=== PATIENT | female | born 1955 | race Caucasian/White ===

== ENCOUNTER 2020-09-17 08:11 | Outpatient (REF) | payer OTHER, SELFPAY ==
--- NOTE | 2020-09-17 | US_ITS ---
EXAMINATION: US THYROID CLINICAL INFORMATION: Thyroid nodule. COMPARISON: Ultrasound soft tissue head/neck thyroid dated 01/18/2019. TECHNIQUE: Linear transducer leon-scale and color Doppler examination with attention to the region of the thyroid. FINDINGS: SIZE: Measurements of the thyroid lobes and nodules are given in sagittal, anteroposterior and transverse dimensions respectively. Right Thyroid Lobe: 5.1 x 2.4 x 1.7 cm, volume 10.9 mL. Previously 5.5 x 2.2 x 1.8 cm, volume 11.1 mL. Parenchyma: The gland echotexture is homogeneous. Thyroid vascularity is normal. Left Thyroid Lobe: 6.0 x 1.7 x 2.0 cm, volume 10.7 mL. Previously 5.5 x 1.8 x 1.7 cm, volume 9.2 mL. Parenchyma: The gland echotexture is homogeneous. Thyroid vascularity is normal. Isthmus: 0.6 cm in maximum AP dimension. Previously 0.6 cm. RIGHT THYROID LOBE: There are 5 nodules seen. The 4 largest are listed. 1. Location: Superior. Size: 0.9 x 0.5 x 0.9 cm. Previous: This nodule is new. Nodule characteristics: Hypoechoic, smooth margin, no calcification and no intranodular flow.. 2. Location: Superior. Size: 0.5 x 0.4 x 0.6 cm. Previous: 0.4 x 0.3 x 0.4 cm. Nodule characteristics: Hypoechoic, smooth margin, no calcification and positive intranodular flow.. 3. Location: Inferior. Size: 0.5 x 0.5 x 0.4 cm. Previous: This nodule is new. Nodule characteristics: Hypoechoic, smooth margin, peripheral calcification and no intranodular flow.. 4. Location: Inferior. Size: 1.8 x 1.8 x 1.2 cm. Previous: This nodule is new. Nodule characteristics: Isoechoic to hyperechoic, smooth margin, no calcification and minimal intranodular flow.. ISTHMUS: No nodules. LEFT THYROID LOBE: There are 4 nodules seen. 1. Location: Superior. Size: 0.7 x 0.4 x 0.5 cm. Previous: 0.7 x 0.5 x 0.5 cm. Nodule characteristics: Hypoechoic, smooth margin, no calcification and no acute nodular flow. 2. Location: Middle/superior. Size: 0.4 x 0.3 x 0.4 cm. Previous: This nodule is new. Nodule characteristics: Hypoechoic and isoechoic, margin, no pelvic patient and no intranodular flow. 3. Location: Inferior. Size: 0.7 x 0.6 x 0.7 cm. Previous: 0.8 x 0.7 x 0.8 cm. Nodule characteristics: Clarkson hypoechoic, smooth margin, peripheral calcification and no intranodular flow. 4. Location: Inferior/medial. Size: 1.1 x 0.9 x 0.9 cm. Previous: 0.9 x 0.7 x 0.8 cm. Nodule characteristics: Isoechoic, smooth margin, no calcification and peripheral flow.. NODES: No lymphadenopathy is seen in the tissue surrounding the thyroid gland. IMPRESSION: Slightly enlarged thyroid gland. There are newly appreciated bilateral thyroid nodules. The largest measures 1.8 x 1.8 x 1.2 cm in theinferior right lobe. Fine-needle aspiration of this nodule and continued ultrasound follow-up recommended.
== END 2020-09-17 08:12 | disposition home or self-care (01) ==
LOC: HO.US 08:11
DX: E04.1 Nontoxic single thyroid nodule (principal)
CPT/HCPCS: 76536

== ENCOUNTER → 2020-10-22 12:23 | Outpatient (BNVA) | payer OTHER, SELFPAY | PROVIDERS: Visit Provider Internal Medicine | DX: Z76.89 Persons encountering health services in other specified circumstances (principal) ==

== ENCOUNTER 2020-12-20 07:56 | Outpatient (REF) | payer OTHER, SELFPAY ==
--- NOTE | 2020-12-20 08:36 | PM.OP ---
Brief Operative Note Date of Service: 12/20/20 Surgeon: Gabriela Conner, DO The Patient presented today for an FNA biopsy of the thyroid. Thyroid nodules were remeasured with the RLP nodule now measuring 1.3 cm in maximal dimension, previously 1.8 cm. This nodule was isoechoic with regular margins and normal vascularity. No FNA biopsy recommended until this nodule measures 1.5 cm. Her LLP nodule was measured at 1.0 cm, also isoechoic, again with FNA biopsy not recommended until 1.5 cm. We discussed this today and she opted to not complete FNA biopsy today and instead proceed with yearly US surveillance of these nodules to monitor for any concerning growth or change. If these nodules grow or change significantly FNA biopsy will be warranted. She verbalized understanding and is in agreement with this plan of care. Estimated blood loss (mL): 0
[2020-12-20 09:46] LABS: Free T4 (Free Thyroxine) 1.19 ng/dL (0.71-1.85); Vitamin D 25-OH Total 33.1 ng/mL (>30)
== END 2020-12-20 07:57 | disposition home or self-care (01) ==
LOC: HO.US 07:56
PROVIDERS: Visit Provider Internal Medicine
DX: E04.2 Nontoxic multinodular goiter (principal); E55.9 Vitamin D deficiency, unspecified
CPT/HCPCS: 36415; 76536; 82306; 84439; 84443

== ENCOUNTER → 2021-01-03 13:20 | Outpatient (BNVA) | payer OTHER, SELFPAY | PROVIDERS: Visit Provider Internal Medicine ==

== ENCOUNTER 2021-04-24 14:46 | Outpatient (REF) | payer OTHER, SELFPAY ==
--- NOTE | ~2021-04-24 | MM_ITS ---
EXAMINATION: MM SCREENING DIGITAL BREAST TOMOSYNTHESIS, BILATERAL CLINICAL INFORMATION: Screening. Asymptomatic. The lifetime risk of breast cancer based on the Tyrer-Cuzick Model is 4%. COMPARISON: Mammography: 05/03/2018, 04/13/2018, outside mammography 05/15/2014 ([place]). TECHNIQUE: Digital breast tomosynthesis is performed in both the craniocaudal and mediolateral oblique views along with computer-aided detection (CAD). Synthesized 2D images are generated from the tomosynthesis. FINDINGS: There are scattered areas of fibroglandular density (ACR BI-RADS breast composition Category b). There is no interval mass or architectural abnormality or developing density. There are some grouped coarse calcifications again noted mid 11:00 right breast likely fibroadenomatous change. The axilla and skin contours are unremarkable. No significant changes from prior exams. MM/MM tomosynthesis screening BI IMPRESSION: No mammographic evidence of malignancy. ASSESSMENT: BI-RADS 2: Benign RECOMMENDATION: Routine annual mammography screening. This patient's information was entered into a reminder system with a target due date for their next mammogram.
== END 2021-04-24 14:47 | disposition home or self-care (01) ==
LOC: HO.MAMMO 14:46
PROVIDERS: PCP Internal Medicine Geriatric Medicine; Visit Provider Internal Medicine Geriatric Medicine
DX: Z12.31 Encounter for screening mammogram for malignant neoplasm of breast (principal)
CPT/HCPCS: 77063; 77067

== ENCOUNTER 2021-10-08 08:34 | Outpatient (REF) | payer OTHER, SELFPAY ==
--- NOTE | ~2021-10-08 | XR_ITS ---
EXAMINATION: BILATERAL SHOULDER X-RAY CLINICAL INFORMATION: Pain COMPARISON: None TECHNIQUE: 4 views of each shoulder FINDINGS: Left: Bone alignment is normal. No fracture or dislocation is seen. 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 There are degenerative changes at the greater tuberosity. Soft tissues are unremarkable. Right: Bone alignment is normal. No fracture or dislocation is seen. There are degenerative changes of the glenohumeral and acromioclavicular joints with joint space narrowing and osteophyte formation. There are degenerative changes of the greater tuberosity. There is a small soft tissue calcification adjacent to the greater tuberosity. XR/XR shoulder RT min 2V IMPRESSION: Degenerative changes.
--- NOTE | ~2021-10-08 | XR_ITS ---
EXAMINATION: BILATERAL SHOULDER X-RAY CLINICAL INFORMATION: Pain COMPARISON: None TECHNIQUE: 4 views of each shoulder FINDINGS: Left: Bone alignment is normal. No fracture or dislocation is seen. 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 There are degenerative changes at the greater tuberosity. Soft tissues are unremarkable. Right: Bone alignment is normal. No fracture or dislocation is seen. There are degenerative changes of the glenohumeral and acromioclavicular joints with joint space narrowing and osteophyte formation. There are degenerative changes of the greater tuberosity. There is a small soft tissue calcification adjacent to the greater tuberosity. XR/XR shoulder LT min 2V IMPRESSION: Degenerative changes.
== END 2021-10-08 08:35 | disposition home or self-care (01) ==
LOC: HO.XRAY 08:34
PROVIDERS: Visit Provider Internal Medicine Geriatric Medicine
DX: M25.512 Pain in left shoulder (principal); M25.511 Pain in right shoulder
CPT/HCPCS: 73030

== ENCOUNTER 2022-01-28 14:28 | Outpatient (REF) | payer OTHER, SELFPAY ==
--- NOTE | ~2022-01-28 | MM_ITS ---
EXAMINATION: BONE DENSITOMETRY CLINICAL INDICATION: Osteoporosis. COMPARISON: None (current study represents initial baseline exam). TECHNIQUE: Using a BOND DXA System (software version: 13.1) manufactured by [employer], dual-energy x-ray absorptiometry was performed of the lumbar spine and left hip. The images are of good technical quality. Summary results are attached. FINDINGS: AP SPINE L1-L4: BMD 1.014 g/cm2, Z-score 0.0, T-score -1.4, osteopenia. LEFT FEMUR, NECK: BMD 0.655 g/cm2, Z-score -1.3, T-score -2.8, osteoporosis. LEFT FEMUR, TOTAL: BMD 0.605 g/cm2, Z-score -2.0, T-score -3.2, osteoporosis. IDENTIFIED RISK FACTORS: Early menopause, secondary osteoporosis, tobacco use (current smoker), hysterectomy. HISTORY OF FRACTURE: None listed. MEDICATIONS: Vitamin D. MM/XR DEXA axial skeleton IMPRESSION: 1. DIAGNOSIS: Osteoporosis based on the lowest T-score value of -3.2 in the total femur applying World Health Organization criteria. 2. 10-YEAR FRACTURE RISK PREDICTION, FRAX: According to the guidelines, FRAX calculation should only be performed on patients in the osteopenia bone density category. Therefore, FRAX was not performed on this patient. 3. Treatment Recommendations: NOF guidelines recommend consideration for treatment in postmenopausal women and men age 50 and older presenting with the following: -A hip or vertebral (clinical or morphometric) fracture. -T-score less than or equal to -2.5 at the femoral neck or spine after appropriate evaluation to exclude secondary causes. -Low bone mass at the hip or spine and a 10-year fracture probability by FRAX of greater than or equal to 3% for hip fracture or greater than or equal to 20% for major osteoporotic fracture based on the [place] adapted WHO algorithm. 4. Other Recommendations: All treatment decisions require clinical judgment and consideration of individual patient factors, including patient preferences, comorbidities, previous drug use, risk factors not captured in the FRAX model (e.g. frailty, falls, vitamin D deficiency, increased bone turnover, interval significant decline in bone density) and possible under or overestimation of fracture risk by FRAX. Additional medical evaluation for secondary cause of low bone mineral density may be appropriate. FUTURE SCAN RECOMMENDATION: People with diagnosed cases of osteoporosis or at high risk for fracture should have regular bone mineral density tests. For patients eligible for Medicare, routine testing is allowed once every 2 years. The testing frequency can be increased to one year for patients who have rapidly progressing disease, those who are receiving or discontinuing medical therapy to restore bone mass, or have additional risk factors.
== END 2022-01-28 14:29 | disposition home or self-care (01) ==
LOC: HO.MAMMO 14:28
PROVIDERS: PCP Internal Medicine Geriatric Medicine; Visit Provider Internal Medicine Geriatric Medicine
DX: Z13.820 Encounter for screening for osteoporosis (principal); M19.011 Primary osteoarthritis, right shoulder; M19.012 Primary osteoarthritis, left shoulder; M81.0 Age-related osteoporosis without current pathological fracture; Z78.0 Asymptomatic menopausal state; Z79.899 Other long term (current) drug therapy
CPT/HCPCS: 77080

== ENCOUNTER 2022-02-20 15:01 | Outpatient (REF) | payer OTHER, SELFPAY ==
--- NOTE | ~2022-02-20 | US_ITS ---
EXAMINATION: US THYROID CLINICAL INFORMATION: Nontoxic multinodular goiter. COMPARISON: Thyroid ultrasound 09/17/2020 and 01/18/2019 TECHNIQUE: Linear transducer grayscale and color Doppler examination with attention to the region of the thyroid. FINDINGS: SIZE: Measurements of the thyroid lobes and nodules are given in sagittal, anteroposterior and transverse dimensions respectively. Right Thyroid Lobe: 4.9 x 2.2 x 2.1 cm, volume 11.5 mL. Previously 5.1 x 2.4 x 1.7 cm, volume 10.9 mL. Parenchyma: The gland echotexture is homogeneous. Thyroid vascularity is normal. Left Thyroid Lobe: 5.0 x 1.8 x 1.8 cm, volume 8.4 mL. Previously 6.0 x 1.7 x 2.0 cm, volume 10.7 mL. Parenchyma: The gland echotexture is homogeneous. Thyroid vascularity is normal. Isthmus: 0.5 cm in maximum AP dimension. Previously 0.6 cm. Estimated total number of nodules greater than or equal to 1 cm: 2. Micro Photographer nodules are described as follows: 1. Location: Right mid. Size: 0.67 x 0.43 x 0.6 cm, volume 0.1 mL. Previously: 0.55 x 0.42 x 0.61 cm, volume 0.1 mL. Nodule characteristics: Composition: Mixed cystic and solid (1). Echogenicity: Hypoechoic (2). Shape: Not taller than wide (0). Margins: Smooth (0). Echogenic Foci: None (0). ACR TI-RADS total points: 3 ACR TI-RADS category: 3 Significant change in size (>/= 20% in 2 dimensions and minimal increase of 2 mm or 50% or greater increase in volume): Change in features: None Change in ACR TI-RADS risk category: Not applicable 2. Location: Right mid. Size: 0.7 x 0.47 x 0.58 cm, volume 0.1 mL. Previously: 0.86 x 0.52 x 0.93 cm, volume 0.2 mL. Nodule characteristics: Composition: Mixed cystic and solid (1). Echogenicity: Hypoechoic (2). Shape: Not taller than wide (0). Margins: Smooth (0). Echogenic Foci: None (0). ACR TI-RADS total points: 3 ACR TI-RADS category: 3 Significant change in size (>/= 20% in 2 dimensions and minimal increase of 2 mm or 50% or greater increase in volume): None Change in features: None Change in ACR TI-RADS risk category: Not applicable 3. Location: Right inferior. Size: 1.3 x 1.0 x 1.2 cm, volume 0.87 mL. Previously: 1.8 x 1.8 x 1.2 cm, volume 2.0 mL. Nodule characteristics: Composition: Solid (2). Echogenicity: Isoechoic (1). Shape: Not taller than wide (0). Margins: Smooth (0). Echogenic Foci: None (0). ACR TI-RADS total points: 3 ACR TI-RADS category: 3 Significant change in size (>/= 20% in 2 dimensions and minimal increase of 2 mm or 50% or greater increase in volume): None Change in features: None Change in ACR TI-RADS risk category: Not applicable 4. Location: Left inferior. Size: 0.74 x 0.59 x 0.73 cm, volume 0.2 mL. Previously: 0.7 x 0.64 x 0.75 cm, volume 0.2 mL. Nodule characteristics: Composition: Mixed cystic and solid (1). Echogenicity: Hypoechoic (2). Shape: Not taller than wide (0). Margins: Smooth (0). Echogenic Foci: Macrocalcifications (1). ACR TI-RADS total points: 4 ACR TI-RADS category: 4 Significant change in size (>/= 20% in 2 dimensions and minimal increase of 2 mm or 50% or greater increase in volume): None Change in features: None Change in ACR TI-RADS risk category: Not applicable 5. Location: Left inferior. Size: 0.85 x 1.1 x 0.92 cm, volume 0.4 mL. Previously: 1.1 x 0.9 x 0.92 cm, volume 0.5 mL. Nodule characteristics: Composition: Solid (2). Echogenicity: Isoechoic (1). Shape: Taller than wide (3). Margins: Smooth (0). Echogenic Foci: None (0). ACR TI-RADS total points: 6 ACR TI-RADS category: 4 Significant change in size (>/= 20% in 2 dimensions and minimal increase of 2 mm or 50% or greater increase in volume): None Change in features: None Change in ACR TI-RADS risk category: Not applicable NODES: No lymphadenopathy is seen in the tissue surrounding the thyroid gland. US/US thyroid IMPRESSION: Multiple nonsuspicious bilateral nodules. The most complex nodule, left lower pole, is subcentimeter at this time. Recommend continued follow-up. ACR TI-RADS RECOMMENDATION REFERENCE: Ultrasound-guided fine-needle aspiration, followup ultrasound, no further follow up. * TR1 (0 point) and TR 2 (2 points): No FNA or follow up * TR3 (3 points): FNA if more than or equal to 2.5 cm in maximum dimension, followup ultrasound in 1, 3 and 5 years if 1.5 to 2.4 cm in maximum dimension. * TR4 (4-6 points): FNA if more than or equal to 1.5 cm in maximum dimension, followup ultrasound in 1, 2, 3 and 5 years if 1 to 1.4 cm in maximum dimension. * TR5 (more than or equal to 7 points): FNA if more than or equal to 1 cm in maximum dimension, followup ultrasound every year for 5 years if 0.5 to 0.9 cm in maximum dimension. * TR3, TR4 or TR5 nodules that are below the size threshold for follow up receive no follow up.
[2022-02-20 16:11] LABS: Free T4 (Free Thyroxine) 1.15 ng/dL (0.71-1.85); Thyroid Stimulating Hormone 0.48 uIU/mL (0.32-4.0); Vitamin D 25-OH Total 34.2 ng/mL (>30)
== END 2022-02-20 15:02 | disposition home or self-care (01) ==
LOC: HO.US 15:01
PROVIDERS: Visit Provider Internal Medicine
DX: E04.2 Nontoxic multinodular goiter (principal); E55.9 Vitamin D deficiency, unspecified
CPT/HCPCS: 36415; 76536; 82306; 84439; 84443

== ENCOUNTER 2023-01-01 12:05 | Outpatient (REF) | payer OTHER, SELFPAY ==
--- NOTE | ~2023-01-01 | US_ITS ---
EXAMINATION: US VENOUS ULTRASOUND WITH DOPPLER LOWER EXTREMITY, RIGHT CLINICAL INFORMATION: Pain swelling COMPARISON: None TECHNIQUE: Ultrasound of the deep veins is performed from the hip to the calf with compression sonography and color and pulse Doppler assessment. Spectral analysis with color-flow imaging is performed. FINDINGS: There is normal venous compression and respiratory variation and augmented flow. The visualized common femoral vein, superficial femoral vein, profunda femoral vein, popliteal vein, and the trifurcation region shows no evidence of deep venous thrombosis. There is no significant popliteal fossa cyst. If the patient's symptoms persist, followup ultrasound in 5 days 7 days might be of value to exclude proximal propagation from a non-visualized calf vein. US/US venous duplex LE RT IMPRESSION: No DVT demonstrated in the right lower extremity.
== END 2023-01-01 12:06 | disposition home or self-care (01) ==
LOC: HO.US 12:05
PROVIDERS: PCP Internal Medicine Geriatric Medicine; Visit Provider Internal Medicine Geriatric Medicine
DX: M79.661 Pain in right lower leg (principal); M79.651 Pain in right thigh
CPT/HCPCS: 93971

== ENCOUNTER 2023-01-13 14:12 | Outpatient (REF) | payer OTHER, SELFPAY ==
--- NOTE | ~2023-01-13 | MM_ITS ---
EXAMINATION: MM SCREENING DIGITAL BREAST TOMOSYNTHESIS, BILATERAL CLINICAL INFORMATION: Screening. Asymptomatic. The lifetime risk of breast cancer based on the Tyrer-Cuzick Model is 4%. COMPARISON: Mammography: 04/24/2021, 05/03/2018, 04/13/2018; outside mammography 05/15/2014 ([place]) TECHNIQUE: Digital breast tomosynthesis is performed in both the craniocaudal and mediolateral oblique views along with computer-aided detection (CAD). Synthesized 2D images are generated from the tomosynthesis. FINDINGS: There are scattered areas of fibroglandular density (ACR BI-RADS breast composition Category b). Parenchymal pattern is similar to prior studies and there is no significant mass or developing density or architectural abnormality. The axilla and skin contours are unremarkable. No abnormal calcifications on left. There are increased tightly grouped calcifications 11:30 mid right breast possibly fibroadenomatous change. Patient will be recalled for additional magnification views. MM/MM tomosynthesis screening BI IMPRESSION: Right: -Increased tightly grouped calcifications mid 11:30 possibly fibroadenomatous change. Left: -No mammographic evidence of malignancy. ASSESSMENT: BI-RADS 0: Incomplete - Need Additional Imaging Evaluation RECOMMENDATION: 1. Additional views of the right breast (magnification CC, magnification ML). 2. Radiology department staff will contact the patient for additional imaging. This patient's information was entered into a reminder system with a target due date for their next mammogram.
== END 2023-01-13 14:13 | disposition home or self-care (01) ==
LOC: HO.MAMMO 14:12
PROVIDERS: Visit Provider Internal Medicine Geriatric Medicine
DX: Z12.31 Encounter for screening mammogram for malignant neoplasm of breast (principal)
CPT/HCPCS: 77063; 77067

== ENCOUNTER 2023-03-23 14:24 | Outpatient (REF) | payer OTHER, SELFPAY ==
--- NOTE | ~2023-03-23 | MM_ITS ---
EXAMINATION: MM DIAGNOSTIC DIGITAL MAMMOGRAPHY, RIGHT CLINICAL INFORMATION: Recall from screening for increased tightly grouped calcifications mid 11:30 right breast, possibly fibroadenomatous changes. COMPARISON: Prior mammography exams, most recent 01/13/2023. TECHNIQUE: Digital mammography is performed in the following views: Magnification right CC, magnification right ML. FINDINGS: There are scattered areas of fibroglandular density (ACR BI-RADS breast composition Category b). The additional views demonstrate tightly grouped calcifications increased in number from prior diagnostic mammography 05/03/2018. They are predominantly coarse and appear circumferentially arranged on the ML view. There are also some smaller calcifications in the group. Results and management options are discussed with the patient at time of visit. Patient prefers short interval follow-up imaging in 6 months rather than stereotactic sampling at this time. MM/MM added views RT IMPRESSION: Tightly grouped calcifications mid 11:30 right breast. ASSESSMENT: BI-RADS 3: Probably Benign RECOMMENDATION: Diagnostic right mammography in 6 months. This patient's information was entered into a reminder system with a target due date for their next mammogram.
== END 2023-03-23 14:25 | disposition home or self-care (01) ==
LOC: HO.MAMMO 14:24
PROVIDERS: PCP Internal Medicine Geriatric Medicine; Visit Provider Internal Medicine Geriatric Medicine
DX: R92.1 Mammographic calcification found on diagnostic imaging of breast (principal)
CPT/HCPCS: 77065

== ENCOUNTER 2023-09-29 14:18 | Outpatient (REF) | payer OTHER, SELFPAY ==
--- NOTE | ~2023-09-29 | MM_ITS ---
EXAMINATION: MM DIAGNOSTIC DIGITAL BREAST TOMOSYNTHESIS, RIGHT CLINICAL INFORMATION: 6 month Follow-up right breast probably benign calcifications upper slightly outer right breast, middle one third. COMPARISON: Mammography: 01/13/2023, 04/24/2021, and dating back to 2018. TECHNIQUE: Digital breast tomosynthesis is performed in both the craniocaudal and mediolateral oblique views along with computer-aided detection (CAD). Synthesized 2D images are generated from the tomosynthesis. In addition, 2-D spot magnification right CC and ML views were obtained. FINDINGS: There are scattered areas of fibroglandular density (ACR BI-RADS breast composition Category b). A small 0.5 cm group of probably benign calcifications in the central slightly upper outer right breast is completely stable without aggressive changes. The calcifications are rounded, with no significant pleomorphism, linear forms, or branching forms. The are unchanged from the prior mammogram 01/13/2023. They remain probably benign. Otherwise, there are no suspicious masses, or areas of architectural distortion in the right breast. The parenchymal pattern is stable from prior exams. There are no skin or axillary changes. MM/MM tomosynthesis diagnostic RT IMPRESSION: There are no significant changes from prior study. There are no findings suspicious for malignancy in the right breast. Stable probably benign calcifications in the central slightly upper outer right breast, for which six-month interval follow-up right breast mammography recommended to include standard magnification views, when the patient is due for bilateral screening. ASSESSMENT: BI-RADS BI-RADS 3 - Probably benign finding(s) - 6 month follow-up suggested RECOMMENDATION: 6 Month F/U Results were provided to the patient at time of visit by the technologist. This patient's information was entered into a reminder system with a target due date for their next mammogram.
== END 2023-09-29 14:19 | disposition home or self-care (01) ==
LOC: HO.MAMMO 14:18
PROVIDERS: PCP Internal Medicine Geriatric Medicine; Visit Provider Internal Medicine Geriatric Medicine
DX: R92.1 Mammographic calcification found on diagnostic imaging of breast (principal)
CPT/HCPCS: 77061; 77065

== ENCOUNTER → 2023-09-29 15:00 | Outpatient (BNV) | payer OTHER, SELFPAY | PROVIDERS: PCP Internal Medicine Geriatric Medicine; Visit Provider Radiology Diagnostic Radiology | DX: R92.1 Mammographic calcification found on diagnostic imaging of breast (principal) | CPT/HCPCS: 77061; 77065 ==

== ENCOUNTER 2024-03-22 08:42 | Outpatient (REF) | payer OTHER, SELFPAY ==
[2024-03-22 14:24] LABS: MANUAL DIFF FLAG NO
[2024-03-22 14:38] LABS: Basophils Absolute Auto 0.1 X10*3/uL (0.0-0.2); Basophils Percent Auto 0.6 % (0-2); Eosinophils Absolute Auto 0.1 X10*3/uL (0.0-0.4); Eosinophils Percent Auto 0.7 % (0-4); Hematocrit 42.5 % (37.0-47.0); Hemoglobin 14.3 g/dl (12.0-16.0); Imm Gran Abs Auto 0.02 X10*3/uL (0.00-0.03); Imm Gran Pct Auto 0.2 % (0.0-0.4); Lymphocytes Absolute Auto 3.6 X10*3/uL (1.2-4.9); Lymphocytes Percent Auto 42.8 % (20-40); Mean Corpuscular HGB Conc 33.6 g/dl (31.0-35.0); Mean Corpuscular Hemoglobin 29.4 pg (27.0-33.0); Mean Corpuscular Volume 87.4 fL (80.0-98.0); Monocytes Absolute Auto 0.5 X10*3/uL (0.1-1.2); Neutrophils Absolute Auto 4.1 x10*3/uL (2.0-8.3); Neutrophils Percent Auto 49.7 % (45-73); Platelet Count 373 X10*3/uL (160-400); Red Blood Count 4.86 X10*6/uL (4.20-5.50); Red Cell Distribution Width 16.3 % (11.0-16.0); White Blood Count 8.3 X10*3/uL (4.8-10.8)
[2024-03-22 14:55] LABS: Alanine Aminotransferase 14 U/L (0-31); Albumin Level 3.9 g/dL (3.5-5.0); Alkaline Phosphatase 81 U/L (39-117); Anion Gap 11 (12-20); Aspartate Amino Transferase 14 U/L (5-31); Bilirubin Total 0.2 mg/dL (0.0-1.0); Blood Urea Nitrogen 12 mg/dL (9-16); Calcium 9.3 mg/dL (8.4-10.2); Carbon Dioxide 25 mmol/L (22-29); Chloride 108 mmol/L (96-108); Cholesterol 212 mg/dL (<200); Estimated Glomerular Filt Rate > 60; Glucose Random 100 mg/dL (60-115); HDL Cholesterol 55 mg/dL (>40); LDL Cholesterol Calculated 144 mg/dL (<100); Potassium 3.7 mmol/L (3.3-5.1); Sodium 140 mmol/L (135-145); Total Protein 7.9 g/dL (6.5-8.0); Triglycerides 68 mg/dL (<150)
[2024-03-22 15:01] LABS: TSH reflex Free T4 0.62 uIU/mL (0.32-4.0); Vitamin D 25-OH Total 35.8 ng/mL (>30)
[2024-03-22 15:32] LABS: Folate 8.5 ng/mL (> or = 4.0); Vitamin B12 400 pg/mL (200-900)
== END 2024-03-22 08:43 | disposition home or self-care (01) ==
LOC: HO.CHCLDS 08:42
PROVIDERS: Visit Provider Internal Medicine Geriatric Medicine
DX: I10 Essential (primary) hypertension (principal); R21 Rash and other nonspecific skin eruption; M25.511 Pain in right shoulder; M25.512 Pain in left shoulder; Z13.220 Encounter for screening for lipoid disorders; D72.829 Elevated white blood cell count, unspecified
CPT/HCPCS: 36415; 80053; 80061; 82306; 82607; 82746; 84443; 85025

== ENCOUNTER 2024-08-23 08:18 | Outpatient (REF) | payer OTHER, SELFPAY ==
[2024-08-23 14:34] LABS: MANUAL DIFF FLAG NO
[2024-08-23 14:43] LABS: Basophils Absolute Auto 0.1 X10*3/uL (0.0-0.2); Basophils Percent Auto 0.7 % (0-2); Eosinophils Percent Auto 0.4 % (0-4); Hematocrit 42.8 % (37.0-47.0); Hemoglobin 14.4 g/dl (12.0-16.0); Imm Gran Abs Auto 0.03 X10*3/uL (0.00-0.03); Imm Gran Pct Auto 0.3 % (0.0-0.4); Lymphocytes Absolute Auto 3.2 X10*3/uL (1.2-4.9); Mean Corpuscular HGB Conc 33.6 g/dl (31.0-35.0); Mean Corpuscular Hemoglobin 29.6 pg (27.0-33.0); Mean Corpuscular Volume 88.1 fL (80.0-98.0); Monocytes Absolute Auto 0.6 X10*3/uL (0.1-1.2); Monocytes Percent Auto 6.5 % (2-11); Neutrophils Percent Auto 56.1 % (45-73); Platelet Count 375 X10*3/uL (160-400); Red Blood Count 4.86 X10*6/uL (4.20-5.50); White Blood Count 8.9 X10*3/uL (4.8-10.8)
[2024-08-23 18:24] LABS: Alanine Aminotransferase 14 U/L (0-31); Alkaline Phosphatase 90 U/L (39-117); Anion Gap 10 (12-20); Aspartate Amino Transferase 16 U/L (5-31); Bilirubin Total 0.3 mg/dL (0.0-1.0); Blood Urea Nitrogen 14 mg/dL (9-16); Calcium 9.5 mg/dL (8.4-10.2); Carbon Dioxide 26 mmol/L (22-29); Chloride 107 mmol/L (96-108); Cholesterol 199 mg/dL (<200); Estimated Glomerular Filt Rate > 60; Glucose Random 93 mg/dL (60-115); HDL Cholesterol 55 mg/dL (>40); LDL Cholesterol Calculated 131 mg/dL (<100); Potassium 3.9 mmol/L (3.3-5.1); Sodium 139 mmol/L (135-145); Total Protein 8.1 g/dL (6.5-8.0); Triglycerides 68 mg/dL (<150)
[2024-08-23 18:25] LABS: TSH reflex Free T4 0.49 uIU/mL (0.32-4.0)
== END 2024-08-23 08:19 | disposition home or self-care (01) ==
LOC: HO.CHCLDS 08:18
PROVIDERS: Visit Provider Internal Medicine Geriatric Medicine
DX: Z00.00 Encounter for general adult medical examination without abnormal findings (principal); E55.9 Vitamin D deficiency, unspecified; E04.1 Nontoxic single thyroid nodule
CPT/HCPCS: 36415; 80053; 80061; 82306; 84443; 85025

== ENCOUNTER → 2024-09-05 07:58 | Outpatient (REF) | payer OTHER, SELFPAY ==
--- NOTE | 2024-09-05 08:01 | HM_ITS ---
* Total monitoring time 1 day. * Underlying rhythm is sinus with an average rate of 72/Min. * Frequent supraventricular ectopy with a burden of 9.8%. Mostly isolated beats with no significant runs. * Rare ventricular ectopy. * No significant pauses or high-grade AV blocks. * No patient markers or diary events. MTDD
== END ==
LOC: HO.CARD 07:58
PROVIDERS: PCP Internal Medicine Geriatric Medicine; Visit Provider Internal Medicine Geriatric Medicine
DX: R00.2 Palpitations (principal)
CPT/HCPCS: 93225

== ENCOUNTER → 2024-09-05 08:01 | Outpatient (BNV) | payer OTHER, SELFPAY | PROVIDERS: PCP Internal Medicine Geriatric Medicine; Visit Provider Internal Medicine | DX: I47.10 Supraventricular tachycardia, unspecified (principal) | CPT/HCPCS: 93227 ==

== ENCOUNTER 2025-06-19 13:35 | Outpatient (REF) | payer OTHER, SELFPAY ==
--- OUTSIDE RECORDS SUMMARY | 2025-06-19 14:21 | XMS_ITS | Clinical Summary ---
Author Organization [employer] Address [address] [place] [address] [address] [place] [address] Care Team Providers Care Development Planner Name Role Phone Name, Loco PHILIP Primary Care Provider Allergies Active Allergy Reactions Criticality Noted Date Comments Acetaminophen 04/13/2018 Ciprofloxacin 02/26/2021 Codeine 04/13/2018 Metronidazole 02/26/2021 Oxycodone 04/13/2018 Oxycodone-Acetaminophen Other 05/05/2023 BP goes up Sulfa Antibiotics 04/13/2018 Tramadol 04/13/2018 Medications omega-3 (FISH OIL) 300 MG capsule Take by mouth Once per day. Active cholecalciferol (Vitamin D-3) 25 MCG (1000 UT) capsule Take 1,000 Units by mouth Once per day. Active Chromium 400 MCG tablet Take by mouth. Active albuterol 108 (90 Base) MCG/ACT inhaler Inhale 2 puffs every 4 (four) hours if needed for wheezing or shortness of breath. 18 g 5 05/10/20 26 Active guaiFENesin (Mucinex) 600 MG 12 hr tablet Take 1 tablet (600 mg) by mouth if needed in the morning and at bedtime for cough or congestion. Do not crush, chew, or split. 30 tablet 5 05/10/20 26 Active benzonatate (Tessalon Perles) 100 MG capsule Take 1 capsule (100 mg) by mouth if needed in the morning, at noon, and at bedtime for cough for up to 10 days. Do not crush or chew. 30 capsule 5 05/20/20 25 HYDROcodone-aceta minophen (Lincoln) 5-325 MG tabletIndications :Low back pain associated with a spinal disorder other than radiculopathy or spinal stenosis Take 1 tablet by mouth every 6 (six) hours if needed for severe pain for up to 7 days. 28 tablet 5 05/29/20 25 Active Problems Problem Noted Date Diagnosed Date Thyroid nodule 12/16/2022 Tobacco use 12/16/2022 Osteoporosis 01/29/2022 Vitamin D deficiency 04/13/2018 Shoulder pain 01/28/2016 Encounters Date Type Department Care Team Description 06/01/[address] [address] Melvin Blake [place] july recalls 06/01/[address] [address] Melvin Blake [place] july recalls 05/22/[address] [address] Michelle Beckett, LEONIDES Low back pain associated with a spinal disorder other than radiculopathy or spinal stenosis (Primary Dx) 05/10/2025 3:00 PM EDT Office Visit [facility] [address] [place] [id number] Ellen Lopez DO Acute bronchitis, unspecified organism (Primary Dx) 05/10/[address] [address] Loco Michel MD Error (VOID this visit) 05/10/[address] [address] Loco Michel MD Nurse Triage 05/05/[address] [address] Loco Michel MD 04/17/2025 3:15 PM EDT Office Visit [address] [address] Loco Michel MD Elevated blood pressure, situational (Primary Dx); Tobacco dependence; Encounter for screening mammogram for malignant neoplasm of breast 04/17/2025 Travel 04/14/2025 Telephone [facility] [address] [place] [address] Андрей Grimes MA chartprep 04/10/2025 Travel 03/21/2025 Refill [facility] [address] [place] [address] Name, MD Loco Chronic shoulder pain, unspecified laterality (Primary Dx) from Last 3 Months Immunizations Immunization Administration Dates Next Due TD (adult), 2 Lf tetanus tox oid, preservative free, adsorbed 12/31/2021,01/28/2002 Tdap 08/03/2012 Social History Tobacco Use Types Packs/Day Years Used Date Smoking Tobacco: Every Day Cigarettes Smokeless Tobacco: Never Tobacco Cessation:Ready to Q uit: Not Asked; Counseling Given: Not Answered Alcohol Use Standard Drinks/Week Comments Yes 0 (1 standard drink = 0.6 oz pur e alcohol) occassionally Depression Answer Date Recorded Patient Health Questionnaire-9 Score 4 04/17/2025 Patient Health Questionnaire-9 Score 4 04/17/2025 Last PHQ-9: Questionnaire Data Not on file 0 04/17/2025 Housing Stability Answer Date Recorded What is your housing situation today? I have linden tim 04/17/[address] you li ve. Do you have problems with any of the following? None of the above 04/17/2025 Food Insecurity Answer Date Recorded Within the past 12 months, y ou worried that your food would run out before you got money to buy more: Never True 04/17/2025 Within the past 12 months,th e food you bought just didn't last and you didn't have enough money to get more: Never True Transportation Answer Date Recorded In the past 12 months, has l ack of transportation kept you from medical appts, meetings, work or from getting things needed for daily living? No 04/17/2025 Utilities Answer Date Recorded In the past 12 months, has t he electric, gas, oil or water company threatened to shut off services in your home? No 04/17/2025 Depression Answer Date Recorded Patient Health Questionnaire-2 Score 0 04/17/2025 Internet Access Answer Date Recorded Internet Access Q1 Yes 04/17/2025 Internet Access Q2 Not on file 04/17/2025 Comments No Sex and Gender Information Value Date Recorded Sex Assigned at Female 09/29/2022 10:29 AM EDT Legal Sex Female 10:29 AM EDT Gender Identity Female 09/29/2022 10:29 AM EDT Sexual Orientation Straight 09/29/2022 10 :29 AM EDT Last Filed Vital Signs Vital Sign Reading Time Taken Comments Blood Pressure 160/90 05/10/2025 3:06 PM EDT Pulse 75 05/10/2025 3:06 PM EDT Temperature 36.6 C (97.9 F) 04/17/2025 3:08 PM EDT Respiratory Rate 18 04/17/2025 3:08 PM EDT Oxygen Saturation 97% 05/10/2025 3:06 PM EDT Inhaled Oxygen Concentration - - Weight 72.8 kg (160 lb 6.4 oz) 08/15/2024 9:10 A M EDT Height 167.6 cm (5' 6 ) 05/10/2025 3:06 PM EDT Body Mass Index 25.89 08/15/2024 9:10 AM EDT Plan of Treatment Upcoming Encounters Date Type Department Care Team (Late st Contact Info) Description 09/05/2025 2:45 PM EDT Office Visit [facility] [address] [place] [phone] Name, MD Loco [address] [place] [address] Health Maintenance Due Date Last Done Comments CT Colonography 1955 Colonoscopy 1955 Colorectal Cancer Screening 1955 FIT DNA/Cologuard 1955 FIT 1955 FOBT 1955 Sigmoidoscopy 1955 Hepatitis C Screening 1972 Pneumococcal Vaccine: 50+ Years (1 of 2 - PCV) 1973 Zoster Vaccines (1 of 2) 2004 Mammogram 03/29/2024 09/29/2023, 09/01, 03/23/2023, Additional history exists COVID-19 Vaccine ( season) 2024 12/05/2021, 06/04/2021, 05/07/2021 Influenza Vaccine (#1) 2025 Alcohol/Substance Use Screening 04/17/2026 04/17/2025 Depression Screening 04/17/2026 04/17/2025, 04/17/20 25 SDOH Screening 04/17/2026 04/17/2025 Tobacco Screening 05/10/2026 05/10/2025 RSV Patients and Patients Aged 60 years or older (1 - 1-dose 75+ series) 2029 Lipid Panel 08/23/2029 08/23/2024, 03/01, 12/16/2022, Additional history exists DTaP/Tdap/Td Vaccines (3 - Td or Tdap) 12/31/2031 12/31/2021, 08/03/2012, 01/28/2002 HIB Vaccines Aged Out No longer eligi ble based on patient's age to complete this topic HPV Vaccines Aged Out No longer eligi ble based on patient's age to complete this topic Hepatitis A Vaccines Aged Out No long er eligible based on patient's age to complete this topic Hepatitis B Vaccines Aged Out No long er eligible based on patient's age to complete this topic IPV Vaccines Aged Out No longer eligi ble based on patient's age to complete this topic Meningococcal B Vaccine Aged Out No l onger eligible based on patient's age to complete this topic Meningococcal Vaccine Aged Out No mahesh nu eligible based on patient's age to complete this topic RSV under 20 months Aged Out No longe r eligible based on patient's age to complete this topic Rotavirus Vaccines Aged Out No longer eligible based on patient's age to complete this topic Procedures Procedure Name Priority Date/Time Associated Diagnosis Comments LIPID PANEL, STANDARD Routine 08/23/2024 8:23 AM EDT PE (physical exam), routine Vitamin D deficiency Thyroid nodule BI MAMMOGRAM DIAGNOSTIC TOMOSYNTHESIS RIGHT Routine 09/29/2023 2:45 PM EDT from Last 3 Months or Most Recently Relevant to Health Maintenance Results * (ABNORMAL) Lipid Panel, Standard (08/23/2024 8:23 AM EDT) Triglycerides 68 <150 mg/dL [facility] Comment:Desirable Triglyceri de: less than 150 mg/dLBorderline High Triglyceride 150-199 mg/dLHigh Triglyceride: 200-499 mg/dLVery High Triglyceride: greater than or equal to 5OO mg/dL Cholesterol 199 <200 mg/dL [facility] Comment:Desirable Cholestero l: less than 200 mg/dLBorderline High Cholesterol: 200-239 mg/dLHigh Cholesterol: greater than 239 mg/dL LDL Cholesterol Calculated 131(H) <100 mg/dL [facility] Comment:Desirable LDL: less than 100 mg/dLNear Optimal/Above Optimal LDL: 110- 129 mg/dLBorderline High LDL: 130-159 mg/dLHigh LDL: 160-189 mg/dLVery High LDL: greater than or equal to 190 mg/dL HDL Cholesterol 55 >40 mg/dL [facility] Comment:Desirable HDL: great er than 40 mg/dL Note: This HDL assay may give artificially low results in patients with liver disease. Blood Venous blood specimen / Unknown 08/23/2024 8:23 AM EDT 08/23/2024 2:26 PM EDT Loco Michel MD LAB BLOOD ORDERABLES Final Resul t [facility] [address] [place] [address] [phone] * BI Mammogram Diagnostic Tomosynthesis Right (09/29/2023 2:45 PM EDT) Anatomical Region Laterality Modality Breast Right Mammography 09/29/2023 2:45 PM EDT Narrative 09/29/2023 3:20 PM EDT [facility] [address] [place] [address] Mammography Report Signed Patient: Sarah Morataya MR#: [id number] : 1955 Acct:[id number] Age/Sex: 68 / F ADM Date: 09/29/23 Loc: HO.MAMMO Attending Dr: Loco Michel MD Ordering Physician: Loco Michel MD Results: 3.6MProbab ly Benign Finding - Short 6 M F/U Suggested Date of Service: 09/29/23 Follow Up: 6 Month F/U Procedure(s): MM tomosynthesis diagnostic RT Accession Number(s): [id number] cc: Name,Loco PHILIP EXAMINATION: MM DIAGNOSTIC DIGITAL BREAST TOMOSYNTHESIS, RIGHT CLINICAL INFORMATION: 6 month Follow-up right breast probably benign calcifications upper slightly outer right breast, middle one third. COMPARISON: Mammography: 01/13/2023, 04/24/2021, and dating back to 2018. TECHNIQUE: Digital breast tomosynthesis is performed in both the craniocaudal and mediolateral oblique views along with computer-aided detection (CAD). Synthesized 2D images are generated from the tomosynthesis. In addition, 2-D spot magnification right CC and ML views were obtained. FINDINGS: There are scattered areas of fibroglandular density (ACR BI-RADS breast composition Category b). A small 0.5 cm group of probably benign calcifications in the central slightly upper outer right breast is completely stable without aggressive changes. The calcifications are rounded, with no significant pleomorphism, linear forms, or branching forms. The are unchanged from the prior mammogram 01/13/2023. They remain probably benign. Otherwise, there are no suspicious masses, or areas of architectural distortion in the right breast. The parenchymal pattern is stable from prior exams. There are no skin or axillary changes. MM/MM tomosynthesis diagnostic RT IMPRESSION: There are no significant changes from prior study. There are no findings suspicious for malignancy in the right breast. Stable probably benign calcifications in the central slightly upper outer right breast, for which six-month interval follow-up right breast mammography recommended to include standard magnification views, when the patient is due for bilateral screening. ASSESSMENT: BI-RADS BI-RADS 3 - Probably benign finding(s) - 6 month follow-up suggested RECOMMENDATION: 6 Month F/U Results were provided to the patient at time of visit by the technologist. This patient's information was entered into a reminder system with a target due date for their next mammogram. Dictated By: Zack Thibodeaux MD Signed By: <Electronically signed by Zack Thibodeaux MD in OV> 09/29/23 1516 DD/ 1445 TD/TT: Blow Pit Helper: Procedure Note Donotuseinterpreter, Image - 09/29/2023 [facility] [address] [place], [place] [address] Mammography Report Signed Patient: Sarah MoratayaMR#: [id number] : 4Acct:[id number] Age/Sex: 68 / FADM Date: 09/29/23 Loc: HO.MAMMO Attending Dr: Loco Michel MD Ordering Physician: Loco Michel MDResults: 3.6MProbab ly Benign Finding - Short 6 M F/U Suggested Date of Service: 09/29/23Follow Up: 6 Month F/U Procedure(s): MM tomosynthesis diagnostic RT Accession Number(s): [id number] cc: Loco Michel MD EXAMINATION: MM DIAGNOSTIC DIGITAL BREAST TOMOSYNTHESIS, RIGHT CLINICAL INFORMATION: 6 month Follow-up right breast probably benign calcifications upper slightly outer right breast, middle one third. COMPARISON: Mammography: 01/13/2023, 04/24/2021, and dating back to 2018. TECHNIQUE: Digital breast tomosynthesis is performed in both the craniocaudal and mediolateral oblique views along with computer-aided detection (CAD). Synthesized 2D images are generated from the tomosynthesis. In addition, 2-D spot magnification right CC and ML views were obtained. FINDINGS: There are scattered areas of fibroglandular density (ACR BI-RADS breast composition Category b). A small 0.5 cm group of probably benign calcifications in the central slightly upper outer right breast is completely stable without aggressive changes. The calcifications are rounded, with no significant pleomorphism, linear forms, or branching forms. The are unchanged from the prior mammogram 01/13/2023. They remain probably benign. Otherwise, there are no suspicious masses, or areas of architectural distortion in the right breast. The parenchymal pattern is stable from prior exams. There are no skin or axillary changes. MM/MM tomosynthesis diagnostic RT IMPRESSION: There are no significant changes from prior study. There are no findings suspicious for malignancy in the right breast. Stable probably benign calcifications in the central slightly upper outer right breast, for which six-month interval follow-up right breast mammography recommended to include standard magnification views, when the patient is due for bilateral screening. ASSESSMENT: BI-RADS BI-RADS 3 - Probably benign finding(s) - 6 month follow-up suggested RECOMMENDATION: 6 Month F/U Results were provided to the patient at time of visit by the technologist. This patient's information was entered into a reminder system with a target due date for their next mammogram. Dictated By: Zack Thibodeaux MD Signed By: <Electronically signed by Zack Thibodeaux MD in OV> 09/29/23 1516 DD/ 1445 TD/TT: Blow Pit Helper: Loco Name IMG BI PROCEDURES Final Result from Last 3 Months or Most Recently Relevant to Health Maintenance Insurance OPEN ACCESS Care Teams Development Planner Relationship Specialty Start Date End Date Name, MD Loco [address] [place] [address] PCP - General Family Medicine 05/31/18
== END 2025-06-19 13:36 | disposition home or self-care (01) ==
LOC: HO.MAMMO 13:35
PROVIDERS: PCP Internal Medicine Geriatric Medicine; Visit Provider Internal Medicine Geriatric Medicine
DX: Z12.31 Encounter for screening mammogram for malignant neoplasm of breast (principal)
CPT/HCPCS: 77063; 77067

== ENCOUNTER → 2025-06-19 14:15 | Outpatient (BNV) | payer OTHER, SELFPAY | PROVIDERS: PCP Internal Medicine Geriatric Medicine; Visit Provider Internal Medicine | DX: Z12.31 Encounter for screening mammogram for malignant neoplasm of breast (principal) | CPT/HCPCS: 77063; 77067 ==

== ENCOUNTER 2025-09-04 08:18 | Outpatient (REF) | payer OTHER, SELFPAY ==
--- OUTSIDE RECORDS SUMMARY | 2025-09-04 08:38 | XMS_ITS | Clinical Summary ---
Author Organization [employer] Address [address] [place] [address] 7 [place] [address] Care Team Providers Care Digital Retoucher Name Role Phone Name, Loco PHILIP Primary Care Provider [phone] Allergies Active Allergy Reactions Criticality Noted Date [...] Chromium 400 MCG tablet Take by mouth. Acti ve albuterol 108 (90 Base) MCG/ACT inhaler Inhale [...] split. 30 tablet 5 05/10/20 26 Active Active Problems Problem Noted Date Diagnosed Date Thyroid nodule 12/16/2022 Tobacco use 12/16/2022 Osteoporosis 01/29/2022 Vitamin D deficiency 04/13/2018 Shoulder pain 01/28/2016 Encounters Date Type Department Care Team Description 08/29/2025 Patient Outreach [facility] [address] [place] [address] Name, MD Loco Pre-visit Planning (SDOH was already complete) 08/29/2025 Travel 07/10/2025 Refill [facility] [address] [place] [address] Name, MD Loco Low back pain associated with a spinal disorder other than radiculopathy or spinal stenosis (Primary Dx) from Last 3 Months Immunizations [...] your housing situation today? I have linden dumont 04/17/[address] you li [...] Description 09/05/2025 2:45 PM EDT Office Visit [facility] [address] [place] [id number] Name, MD Loco [address] [place] [address] Health Maintenance Due Date Last Done Comments CT Colonography 1954 Colonoscopy 1955 Colorectal Cancer Screening 1955 FIT DNA/Cologuard 1954 FIT 1954 FOBT 1954 Sigmoidoscopy 1954 Hepatitis C Screening 1972 Pneumococcal Vaccine: 50+ Years (1 of 2 - PCV) 1973 Zoster Vaccines (1 of 2) 2004 COVID-19 Vaccine (4 - season) 2025 12/05/2021, 06/04/2021, 05/07/2021 Influenza Vaccine (#1) 2025 Mammogram 12/20/2025 06/19/2025, 09/01, 09/29/2023, Additional history exists Alcohol/Substance Use Screening 04/17/2026 04/17/2025 Depression Screening [...] Procedure Name Priority Date/Time Associated Diagnosis Comments BI MAMMOGRAM SCREENING TOMOSYNTHESIS BILATERAL Routine 06/19/2025 1:45 PM EDT Encounter for screening mammogram for malignant neoplasm of breast LIPID PANEL, STANDARD Routine 08/23/2024 8:23 AM EDT PE (physical exam), routine Vitamin D deficiency Thyroid nodule from Last 3 Months or Most Recently Relevant to Health Maintenance Results * BI Mammogram Screening Tomosynthesis Bilateral (06/19/2025 1:45 PM EDT) Anatomical Region Laterality Modality Breast Bilateral Mammography 06/19/2025 1:45 PM EDT Narrative 06/27/2025 11:47 AM EDT [place] [facility] [address] [place], [place] [address] Mammography Report Signed with Addenda Patient: Sarah Morataya MR#: [id number] : 1955 Acct:[id number] Age/Sex: 70 / F ADM Date: 06/19/25 Loc: HO.MAMMO Attending Dr: Loco Michel MD Ordering Physician: Loco Michel MD Results: 0Incomplet e: Needs Additional Imaging Evaluation Date of Service: 06/19/25 Follow Up: Additional Imagi ng Procedure(s): MM tomosynthesis screening BI Accession Number(s): [id number] cc: Loco Michel MD ADDENDUM ADDENDUM #1 ADDENDUM: Patient was contacted for additional magnification views of right breast calcifications however patient declined and does not wish to come back for additional views. Additional views still recommended as below. ASSESSMENT: BI-RADS BI-RADS 0 - Incomplete: Needs additional Imaging. RECOMMENDATION: 1. Additional views of the right breast with magnification views. 2. Radiology department staff will contact the patient for additional imaging. Additional Imaging required OVERALL ASSESSMENT: BI-RADS 0 - Incomplete: Needs additional Imaging. RECOMMENDATION: Additional Imaging required Electronically signed by: Sharri Drew DO 07/05/2025 12:43 PM EDT Addendum Dictated By: Sharri Drew DO Addendum Signed By: <Electronically signed by Sharri Drew DO in OV> 07/05/25 1243 Addendum Cosigned By: DD/ TD/TT: 06/19/25 EXAMINATION: MM SCREENING DIGITAL BREAST TOMOSYNTHESIS, BILATERAL CLINICAL INFORMATION: Screening. Asymptomatic. COMPARISON: Mammography: Comparison is made with available priors TECHNIQUE: Digital breast mammography with tomosynthesis is performed in both the craniocaudal and mediolateral oblique views along with computer-aided detection (CAD). FINDINGS: There are scattered areas of fibroglandular density (ACR BI-RADS breast composition Category b). Right: Grouped calcifications upper slightly outer breast posterior depth recommended for follow-up on prior diagnostic imaging examination. Recommend magnification views at this time. No suspicious masses or other abnormal findings. Left: There are no significant masses, abnormal calcifications, or other abnormalities. MM/MM tomosynthesis screening BI IMPRESSION: Additional imaging is recommended ASSESSMENT: BI-RADS BI-RADS 0 - Incomplete: Needs additional Imaging. RECOMMENDATION: 1. Additional views of the right breast with magnification views. 2. Targeted ultrasound if warranted after review of the additional views. 3. Radiology department staff will contact the patient for additional imaging. Additional Imaging required This examination should not preclude the clinical evaluation of a suspicious palpable abnormality. This patient's information was entered into a reminder system with a target due date for their next mammogram. Electronically signed by: Sharri Drew DO 06/27/2025 11:44 AM EDT Dictated By: Sharri Drew DO Signed By: <Electronically signed by Sharri Drew DO in OV> 06/27/25 1144 DD/ 1345 TD/TT: 06/19/25 1400 Outboard Technician: Procedure Note Donotuseinterpreter, Image - [facility] [address] [place] [address] Mammography Report Signed with Addenda Patient: Sarah Morataya#: [id number] : 1955cct:[id number] Age/Sex: 70 / FADM Date: 06/19/25 Loc: MAMMO Attending Dr: Loco Michel MD Ordering Physician: Loco Michelesults: 0Incomplet e: Needs Additional Imaging Evaluation Date of Service: 06/19/25Follow Up: Additional Imagi ng Procedure(s): MM tomosynthesis screening BI Accession Number(s): [id number] cc: Loco Michel MD ADDENDUM ADDENDUM #1 ADDENDUM: Patient was contacted for additional magnification views of right breast calcifications however patient declined and does not wish to come back for additional views. Additional views still recommended as below. ASSESSMENT: BI-RADS BI-RADS 0 - Incomplete: Needs additional Imaging. RECOMMENDATION: 1. Additional views of the right breast with magnification views. 2. Radiology department staff will contact the patient for additional imaging. Additional Imaging required OVERALL ASSESSMENT: BI-RADS 0 - Incomplete: Needs additional Imaging. RECOMMENDATION: Additional Imaging required Electronically signed by: Sharri Drew DO 07/05/2025 12:43 PM EDT RP Addendum Dictated By: Sharri Drew DO Addendum Signed By: <Electronically signed by DO Shonda in OV> 07/05/25 1243 Addendum Cosigned By: DD/ TD/TT: 06/19/25 EXAMINATION: MM SCREENING DIGITAL BREAST TOMOSYNTHESIS, BILATERAL CLINICAL INFORMATION: Screening. Asymptomatic. COMPARISON: Mammography: Comparison is made with available priors TECHNIQUE: Digital breast mammography with tomosynthesis is performed in both the craniocaudal and mediolateral oblique views along with computer-aided detection (CAD). FINDINGS: There are scattered areas of fibroglandular density (ACR BI-RADS breast composition Category b). Right: Grouped calcifications upper slightly outer breast posterior depth recommended for follow-up on prior diagnostic imaging examination. Recommend magnification views at this time. No suspicious masses or other abnormal findings. Left: There are no significant masses, abnormal calcifications, or other abnormalities. MM/MM tomosynthesis screening BI IMPRESSION: Additional imaging is recommended ASSESSMENT: BI-RADS BI-RADS 0 - Incomplete: Needs additional Imaging. RECOMMENDATION: 1. Additional views of the right breast with magnification views. 2. Targeted ultrasound if warranted after review of the additional views. 3. Radiology department staff will contact the patient for additional imaging. Additional Imaging required This examination should not preclude the clinical evaluation of a suspicious palpable abnormality. This patient's information was entered into a reminder system with a target due date for their next mammogram. Electronically signed by: Sharri Drew DO 06/27/2025 11:44 AM EDT RP Dictated By: Sharri Drew DO Signed By: <Electronically signed by Sharri Drew DO in OV> 06/27/25 1144 DD/ 1345 TD/TT: 06/19/25 1400 Outboard Technician: us Adan Name IMG BI PROCEDURES Edited Result - Final * (ABNORMAL) Lipid Panel, Standard (08/23/2024 8:23 AM EDT) Triglycerides 68 <150 mg/dL [facility] Comment:Desirable Triglyceri de: less than 150 mg/dLBorderline High Triglyceride 150-199 mg/dLHigh Triglyceride: 200-499 mg/dLVery High Triglyceride: greater than or equal to 5OO mg/dL Cholesterol 199 <200 mg/dL [facility] Comment:Desirable Cholestero l: less than 200 mg/dLBorderline High Cholesterol: 200-239 mg/dLHigh Cholesterol: greater than 239 mg/dL LDL Cholesterol Calculated 131(H) <100 mg/dL [facility] Comment:Desirable LDL: less than 100 mg/dLNear Optimal/Above Optimal LDL: 110- 129 mg/dLBorderline High LDL: 130-159 mg/dLHigh LDL: 160-189 mg/dLVery High LDL: greater than or equal to 190 mg/dL HDL Cholesterol 55 >40 mg/dL [facility] Comment:Desirable HDL: great er than 40 mg/dL Note: This HDL assay may give artificially low results in patients with liver disease. Blood Venous blood specimen / Unknown 08/23/2024 8:23 AM EDT 08/23/2024 2:26 PM EDT us Loco Michel MD LAB BLOOD ORDERABLES Final Resul t [facility] [address] [place] [phone] from Last 3 Months or Most Recently Relevant to Health Maintenance Insurance [employer] OPEN ACCESS Care Teams Digital Retoucher Relationship Specialty Start Date End Date Name, MD Loco [address] [place] [id number] PCP - General Family Medicine 05/31/18
--- OUTSIDE RECORDS SUMMARY | 2025-09-04 08:39 | XMS_ITS | Encounter Summary ---
Author Organization [employer] Address [address] [facility] [address] [address] Care Team Providers Care Fern Gatherer Name Role Phone NameLoco MD Primary Care Provider [phone] Reason for Visit * Reason Onset Date Comments Appointment Request 12/14/2024 Encounter Details Date Type Department Care Team ([facility] st Contact Info) Description 12/14/2024 Telephone [facility] MEDIC[facility] [address] [place], [place] [phone] Name, MD Loco [address] [place] [address] Appointment Request Social History Tobacco Use Types Packs/Day Years Used Date Smoking Tobacco: Every Day Cigarettes Smokeless Tobacco: Never Alcohol Use Standard Drinks/Week Comments Yes 0 (1 standard drink = 0.6 oz pur e alcohol) occassionally Depression Answer Date Recorded Patient Health Questionnaire-9 Score 0 12/16/2022 Housing Stability Answer Date Recorded What is your housing situation today? I have lidnen dumont 09/14/[address] you li ve. Do you have problems with any of the following? None of the above 09/14/2023 Food Insecurity Answer Date Recorded Within the past 12 months, y ou worried that your food would run out before you got money to buy more: Never True 09/14/2023 Within the past 12 months,th e food you bought just didn't last and you didn't have enough money to get more: Never True Transportation Answer Date Recorded In the past 12 months, has l ack of transportation kept you from medical appts, meetings, work or from getting things needed for daily living? No 09/14/2023 Utilities Answer Date Recorded In the past 12 months, has t he electric, gas, oil or water company threatened to shut off services in your home? No 09/14/2023 Depression Answer Date Recorded Patient Health Questionnaire-2 Score 0 12/16/2022 Comments Unknown Sex and Gender Information Value Date Recorded Sex Assigned at Female 09/29/2022 10:29 AM EDT Legal Sex Female 10:29 AM EDT Gender Identity Female 09/29/2022 10:29 AM EDT Sexual Orientation Straight 09/29/2022 10 :29 AM EDT documented as of this encounter Miscellaneous Notes * Telephone Encounter - Jeanine Keane - 12/14/2024 8:52 AM EST Tc from pt requesting reschedule 11/21 appt that was canceled due no electricity. PAR tried to schedule but there's no availability. Contact pt [phone] documented in this encounter Plan of Treatment Upcoming Encounters Date Type Department Care Team (Late st Contact Info) Description 09/05/2025 2:45 PM EDT Office Visit [facility] [address] [place] [phone] Name, MD Loco [address] [place] [address] documented as of this encounter Visit Diagnoses Not on filedocumented in this encounter Additional Health Concerns Assessment Noted Time PHQ-9 Depression Total Score: 0 12/16/19 23 9:25 AM EST documented as of this encounter Care Teams Fern Gatherer Relationship Specialty Start Date End Date Name, MD Loco [address] [place] [phone] PCP - General Family Medicine 05/31/18 documented as of this encounter
[2025-09-04 14:42] LABS: MANUAL DIFF FLAG NO
[2025-09-04 14:52] LABS: Hematocrit 42.2 % (37.0-47.0); Hemoglobin 14.0 g/dl (12.0-16.0); Imm Gran Abs Auto 0.02 X10*3/uL (0.00-0.03); Imm Gran Pct Auto 0.2 % (0.0-0.4); Lymphocytes Absolute Auto 2.7 X10*3/uL (1.2-4.9); Mean Corpuscular HGB Conc 33.2 g/dl (31.0-35.0); Mean Corpuscular Hemoglobin 29.7 pg (27.0-33.0); Mean Corpuscular Volume 89.4 fL (80.0-98.0); NRBC Abs Auto 0.000 X10*3/uL (0.0-0.012); NRBC Pct Auto 0.0 /100WBC (0.0-0.2); Platelet Count 366 X10*3/uL (160-400); Red Blood Count 4.72 X10*6/uL (4.20-5.50); White Blood Count 8.0 X10*3/uL (4.8-10.8)
[2025-09-04 15:23] LABS: Alanine Aminotransferase 15 U/L (0-31); Albumin Level 3.8 g/dL (3.5-5.0); Alkaline Phosphatase 82 U/L (39-117); Anion Gap 9 (12-20); Aspartate Amino Transferase 28 U/L (5-31); Blood Urea Nitrogen 12 mg/dL (9-16); Calcium 9.0 mg/dL (8.4-10.2); Carbon Dioxide 27 mmol/L (22-29); Chloride 106 mmol/L (96-108); Cholesterol 191 mg/dL (<200); Estimated Glomerular Filt Rate > 60; HDL Cholesterol 47 mg/dL (>40); Potassium 4.3 mmol/L (3.3-5.1); Sodium 138 mmol/L (135-145); Total Protein 7.8 g/dL (6.5-8.0); Triglycerides 96 mg/dL (<150)
== END 2025-09-04 08:19 | disposition home or self-care (01) ==
LOC: HO.CHCLDS 08:18
PROVIDERS: Visit Provider Internal Medicine Geriatric Medicine
DX: Z13.6 Encounter for screening for cardiovascular disorders (principal); M25.511 Pain in right shoulder; M25.512 Pain in left shoulder; G89.29 Other chronic pain
CPT/HCPCS: 36415; 80053; 80061; 82306; 85025

== ENCOUNTER 2025-11-02 15:46 | Outpatient (REF) | payer OTHER, SELFPAY ==
--- NOTE | ~2025-11-02 | US_ITS ---
EXAMINATION: US THYROID CLINICAL INFORMATION: History of thyroid nodules. COMPARISON: February 20, 2022. TECHNIQUE: Linear transducer grayscale and color Doppler examination with attention to the region of the thyroid. FINDINGS: SIZE: Measurements of the thyroid lobes and nodules are given in sagittal, anteroposterior and transverse dimensions respectively. Right Thyroid Lobe: 5.1 x 2.0 x 2.0 cm, volume 9.1 mL. Previous: 4.9 x 2.2 x 2.1 cm, volume: 10.9 cc. Parenchyma: The gland echotexture is heterogeneous. Thyroid vascularity is normal. Left Thyroid Lobe: 5.0 x 2.0 x 2.0 cm, volume 9.2 mL. Previous: 6.0 x 1.7 x 2.0 cm, volume: 10.7 cc. Parenchyma: The gland echotexture is heterogeneous. Thyroid vascularity is normal. Isthmus: 0.5 cm in maximum AP dimension. Previous: 0.5 cm. Estimated total number of nodules greater than or equal to 1 cm: 2. Shaft Sinker nodules are described as follows: 1. Location: Lower pole, right lobe. Size: 1.5 x 0.8 x 1.0 cm, volume 0.61 mL. Previous: 1.3 x 1.0 x 1.2 cm, volume: 0.87 cc. Nodule characteristics: Composition: Solid (2). Echogenicity: Hyperechoic (1). Shape: Not taller than wide (0). Margins: Ill-defined (0). Echogenic Foci: None (0). ACR TI-RADS total points: 3 ACR TI-RADS category: 3 2. Location: Lower pole, left lobe. Size: 1.1 x 0.8 x 0.8 cm, volume 0.4 mL. Previous: 0.85 x 1.1 x 0.82 cm, volume: 0.4 cc. Nodule characteristics: Composition: Mixed cystic and solid (1). Echogenicity: Undetermined (1) Shape: Not taller than wide (0). Margins: Smooth (0). Echogenic Foci: None (0). ACR TI-RADS total points: 2 ACR TI-RADS category: 2 3. Location: Mid right lobe. Size: 0.8 x 0.6 x 0.6 cm, volume 0.14 mL. Previous: 0.55 x 0.42 x 0.61 cm, volume: 0.1 cc. Nodule characteristics: Composition: Mixed cystic and solid (1). Echogenicity: Hypoechoic (2). Shape: Not taller than wide (0). Margins: Smooth (0). Echogenic Foci: None (0). ACR TI-RADS total points: 3 ACR TI-RADS category: 3 4. Location: Mid right lobe. Size: 0.5 x 0.4 x 0.4 cm, volume 0.0 50 mL. Previously: Not seen. Nodule characteristics: Composition: Mixed cystic and solid (1). Echogenicity: Hypoechoic (2). Shape: Not taller than wide (0). Margins: Smooth (0). Echogenic Foci: None (0). ACR TI-RADS total points: 3 ACR TI-RADS category: 3 5. Location: Lower pole left lobe. Size: 0.8 x 0.4 x 0.7 cm, volume 0.12 mL. Previous: 0.7 x 0.64 x 0.75 cm, volume: 0.2 cc. Nodule characteristics: Composition: Mixed cystic and solid (1). Echogenicity: Hypoechoic (2). Shape: Not taller than wide (0). Margins: Smooth (0). Echogenic Foci: Macrocalcifications (1). ACR TI-RADS total points: 4 ACR TI-RADS category: 4 NODES: No lymphadenopathy is seen in the tissue surrounding the thyroid gland. US/US thyroid IMPRESSION: ACR TI RADS category 3 and 4 ACR TI-RADS RECOMMENDATION REFERENCE: Ultrasound-guided fine-needle aspiration, followup ultrasound, no further follow up. * TR1 (0 point) and TR2 (2 points): No FNA or follow up. * TR3 (3 points): FNA if more than or equal to 2.5 cm in maximum dimension, followup ultrasound in 1, 3 and 5 years if 1.5 to 2.4 cm in maximum dimension. * TR4 (4-6 points): FNA if more than or equal to 1.5 cm in maximum dimension, followup ultrasound in 1, 2, 3 and 5 years if 1 to 1.4 cm in maximum dimension. * TR5 (more than or equal to 7 points): FNA if more than or equal to 1 cm in maximum dimension, followup ultrasound every year for 5 years if 0.5 to 0.9 cm in maximum dimension. * TR3, TR4 or TR5 nodules that are below the size threshold for followup receive no follow up. Electronically signed by: Celio Jacobs MD 11/03/2025 06:58 AM [facility]
--- OUTSIDE RECORDS SUMMARY | 2025-11-02 21:55 | XMS_ITS | Clinical Summary ---
Author Organization [employer] Address [address] [place] [address] [address] [place] [address] Care Team Providers Care Financial Services Sales Representative Name Role Phone Looc Michel MD Primary Care Provider [phone] Allergies Active Allergy Reactions Criticality Noted Date Comments Acetaminophen 04/13/2018 Ciprofloxacin 02/26/2021 Codeine 04/13/2018 Metronidazole 02/26/2021 Oxycodone 04/13/2018 Oxycodone-Acetaminophen Other 05/05/2023 BP goes up Sulfa Antibiotics 04/13/2018 Tramadol 04/13/2018 Medications omega-3 (FISH OIL) 300 MG capsule Take by mouth Once per day. Active cholecalciferol (Vitamin D-3) 25 MCG (1000 UT) capsule Take 1,000 Units by mouth Once per day. Active HYDROcodone-edith taminophen ([place]) 5-325 MG tablet 025 Discontinued(Re order (will not trigger notification to Pharmacy)) HYDROcodone-edith taminophen ([place]) 5-325 MG tabletIndicatio ns:Chronic shoulder pain, unspecified laterality Take 1 tablet by mouth every 6 (six) hours if needed for severe pain for up to 7 days. 28 tablet 10/20/20 25 025 Active Problems Problem Noted Date Diagnosed Date Thyroid nodule 12/16/2022 Tobacco use 12/16/2022 Osteoporosis 01/29/2022 Vitamin D deficiency 04/13/2018 Shoulder pain 01/28/2016 Encounters Date Type Department Care Team Description 10/20/2025 Refill [facility] [address] [place] [phone] Loco Michel MD Chronic shoulder pain, unspecified laterality (Primary Dx) 10/20/2025 Telephone [facility] [address] [place] [phone] Loco Michel MD 09/05/2025 2:45 PM EDT Office Visit [facility] [address] [place] [address] [phone] Loco Michel MD PE (physical exam), routine (Primary Dx); Elevated blood pressure reading; Osteoporosis, unspecified osteoporosis type, unspecified pathological fracture presence; Chronic shoulder pain, unspecified laterality; Encounter for screening for malignant neoplasm of colon; Abnormal mammogram; Thyroid nodule 09/05/2025 Travel 09/04/2025 Telephone [facility] [address] [place] [phone] Loco Michel MD CHART PREP 08/29/2025 Patient Outreach [facility] [address] [place], [place] [phone] Loco Michel MD Pre-visit Planning (SDOH was already complete) 08/29/2025 Travel from Last 3 Months Immunizations Immunization Administration [...] Sign Reading Time Taken Comments Blood Pressure 162/72 09/05/2025 2:48 PM EDT Pulse 108 09/05/2025 2:48 PM EDT Temperature 36 C (96.8 F) 09/05/2025 2:48 PM EDT Respiratory Rate 18 09/05/2025 2:48 PM EDT Oxygen Saturation 97% 09/05/2025 2:48 PM EDT Inhaled Oxygen Concentration - - Weight 73.1 kg (161 lb 3.2 oz) 09/05/2025 2:48 P M EDT Height 167.6 cm (5' 6 ) 09/05/2025 2:48 PM EDT Body Mass Index 26.02 09/05/2025 2:48 PM EDT Plan of Treatment Health Maintenance Due Date Last Done Comments CT Colonography 1955 Colonoscopy 1955 Colorectal Cancer Screening 1955 FIT DNA/Cologuard 1955 FIT 1955 FOBT 1955 Sigmoidoscopy 1955 Hepatitis C Screening 1972 Pneumococcal Vaccine: 50+ Years (1 of 2 - PCV) 1973 Zoster Vaccines (1 of 2) 2004 COVID-19 Vaccine (4 - 2024-26 season) 2025 12/05/2021, 06/04/2021, 05/07/2021 Influenza Vaccine (#1) 2025 Mammogram 12/20/2025 06/19/2025, 09/01, 09/29/2023, Additional history exists Alcohol/Substance Use Screening 04/17/2026 04/17/2025 Depression Screening 04/17/2026 04/17/2025, 04/17/20 25 SDOH Screening 04/17/2026 04/17/2025 Tobacco Screening 09/05/2026 09/05/2025 RSV Patients and Patients Aged 60 years or older (1 - 1-dose 75+ series) 2029 Lipid Panel 09/04/2030 09/04/2025, 08/01, 03/22/2024, Additional history exists DTaP/Tdap/Td Vaccines (3 - [...] Procedure Name Priority Date/Time Associated Diagnosis Comments VITAMIN D,25-OH,TOTAL,IA Routine 09/04/2025 8:20 AM EDT Tobacco dependence LIPID PANEL, STANDARD Routine 09/04/2025 8:20 AM EDT Tobacco dependence COMPREHENSIVE METABOLIC PANEL Routine 09/04/2025 8:20 AM EDT Tobacco dependence CBC WITH AUTO DIFFERENTIAL Routine 09/04/2025 8:20 AM EDT Tobacco dependence BI MAMMOGRAM SCREENING TOMOSYNTHESIS BILATERAL Routine 06/19/2025 1:45 PM EDT Encounter for screening mammogram for malignant neoplasm of breast from Last 3 Months or Most Recently Relevant to Health Maintenance Results * Vitamin D, 25-Hydroxy, Total, Immunoassay (09/04/2025 8:20 AM EDT) Vitamin D 25-OH Total 46.4 >30 ng/mL [facility] Comment: Health Based Reference Values*< 20 ng/mL Wymikijie92-40 ng/mL Insufficient> 30 ng/mL Sufficient*Penelope SHEPHERD. N Engl J Med. 2007;357:266-280There is no well-established upper level of normal vitamin Dlevels. Some laboratories use 50 ng/mL as an upper limit ofnormal. However, toxicity is patient-dependent and may occurat any level. Careful correlation with the patient'spresentation is necessary and, if there is concern forvitamin D toxicity, treatment should be consideredirrespective of the serum level.Care must be taken in interpreting Vitamin D results fromdifferent laboratories and methodologies. Published datademonstrated that results from patients undergoinghemodialysis may show a negative bias when tested withvarious automated 25-OH vitamin D assays when compared toLC-MS/MS.When testing samples from patients whose predominant form ofVitamin D is Vitamin D2, such as patients receiving VitaminD2 supplementation, results that are subtherapeutic shouldbe confirmed with another method such as LC-MS/MS. Blood Venous blood specimen / Unknown 09/04/2025 8:20 AM EDT 09/04/2025 2:37 PM EDT us Loco Michel MD LAB BLOOD ORDERABLES Final Resul t [facility] [address] [place] [address] [phone] * CBC auto differential (09/04/2025 8:20 AM EDT) White Blood Count 8.0 4.8 - 10.8 X10*3/uL [facility] Red Blood Count 4.72 4.20 - 5.50 X10*6/uL [facility] Hemoglobin 14.0 12.0 - 16.0 g/dl [facility] Hematocrit 42.2 37.0 - 47.0 % [facility] Mean Corpuscular Volume 89.4 80.0 - 98.0 fL [facility] Mean Corpuscular Hemoglobin 29.7 27.0 - 33.0 pg [facility] Mean Corpuscular HGB Conc 33.2 31.0 - 35.0 g/dl [facility] Red Cell Distribution Width 15.9 11.0 - 16.0 % [facility] Platelet Count 366 160 - 400 X10*3/uL [facility] Mean Platelet Volume 9.7 9.4 - 12.3 fL [facility] Neutrophils Percent Auto 57.3 45 - 73 % [facility] Imm Gran Pct Auto 0.2 0.0 - 0.4 % [facility] Lymphocytes Percent Auto 33.4 20 - 40 % [facility] Monocytes Percent Auto 7.6 2 - 11 % [facility] Eosinophils Percent Auto 0.6 0 - 4 % [facility] Basophils Percent Auto 0.9 0 - 2 % [facility] NRBC Pct Auto 0.0 0.0 - 0.2 /100WBC [facility] Neutrophils Absolute Auto 4.6 2.0 - 8.3 x10*3/uL [facility] Imm Gran Abs Auto 0.02 0.00 - 0.03 X10*3/uL [facility] Lymphocytes Absolute Auto 2.7 1.2 - 4.9 X10*3/uL [facility] Monocytes Absolute Auto 0.6 0.1 - 1.2 X10*3/uL [facility] Eosinophils Absolute Auto 0.1 0.0 - 0.4 X10*3/uL [facility] Basophils Absolute Auto 0.1 0.0 - 0.2 X10*3/uL [facility] NRBC Abs Auto 0.000 0.0 - 0.012 X10*3/uL [facility] Blood Venous blood specimen / Unknown 09/04/2025 8:20 AM EDT 09/04/2025 2:37 PM EDT us Loco Michel MD LAB BLOOD ORDERABLES Final Resul t Performing Organization Address [facility] de Phone Number [facility] [address] [place] [phone] * (ABNORMAL) Lipid Panel, Standard (09/04/2025 8:20 AM EDT) Triglycerides 96 <150 mg/dL [facility] Comment:Desirable Triglyceri de: less than 150 mg/dLBorderline High Triglyceride 150-199 mg/dLHigh Triglyceride: 200-499 mg/dLVery High Triglyceride: greater than or equal to 5OO mg/dL Cholesterol 191 <200 mg/dL [facility] Comment:Desirable Cholestero l: less than 200 mg/dLBorderline High Cholesterol: 200-239 mg/dLHigh Cholesterol: greater than 239 mg/dL LDL Cholesterol Calculated 125(H) <100 mg/dL [facility] Comment:Desirable LDL: less than 100 mg/dLNear Optimal/Above Optimal LDL: 110- 129 mg/dLBorderline High LDL: 130-159 mg/dLHigh LDL: 160-189 mg/dLVery High LDL: greater than or equal to 190 mg/dL HDL Cholesterol 47 >40 mg/dL [facility] Comment:Desirable HDL: great er than 40 mg/dL Note: This HDL assay may give artificially low results in patients with liver disease. Blood Venous blood specimen / Unknown 09/04/2025 8:20 AM EDT 09/04/2025 2:37 PM EDT us Loco Michel MD LAB BLOOD ORDERABLES Final Resul t Performing Organization Address City/[facility] Co de Phone Number [facility] [address] [place] [phone] * (ABNORMAL) Comprehensive Metabolic Panel (09/04/2025 8:20 AM EDT) Sodium 138 135 - 145 mmol/L [facility] Potassium 4.3 3.3 - 5.1 mmol/L [facility] Comment:Slight Hemolysis.Int erpret result with caution. Chloride 106 96 - 108 mmol/L [facility] Carbon Dioxide 27 22 - 29 mmol/L [facility] Anion Gap 9(L) 12 - 20 [facility] Urea Nitrogen (BUN) 12 9 - 16 mg/dL [facility] Creatinine, Serum 0.65 0.5 - 1.4 mg/dL [facility] Estimated Glomerular Filt Rate >60 [facility] Comment:Chronic Kidney Disea se: Estimated GFR < 60 mL/min/1.66q4Xroxvl Kidney Disease: Estimated GFR < 15 mL/min/1.73m2 Glucose 91 60 - 115 mg/dL [facility] Calcium 9.0 8.4 - 10.2 mg/dL [facility] Bilirubin, Total 0.3 0.0 - 1.0 mg/dL [facility] Aspartate Amino Transferase 28 5 - 31 U/L [facility] Comment:Slight Hemolysis.Int erpret result with caution. Alanine Aminotransferase 15 0 - 31 U/L [facility] Total Protein 7.8 6.5 - 8.0 g/dL [facility] Albumin Level 3.8 3.5 - 5.0 g/dL [facility] Alkaline Phosphatase 82 39 - 117 U/L [facility] Blood Venous blood specimen / Unknown 09/04/2025 8:20 AM EDT 09/04/2025 2:37 PM EDT us Loco Michel MD LAB BLOOD ORDERABLES Final Resul t [facility] [address] [place] [address] [phone] * BI Mammogram Screening Tomosynthesis Bilateral (06/19/2025 1:45 PM EDT) Anatomical Region Laterality Modality Breast Bilateral Mammography 06/19/2025 1:45 PM EDT Narrative 06/27/2025 11:47 AM EDT [facility] [address] [place], [place] [address] Mammography Report Signed with Addenda Patient: Sarah Morataya MR#: [id number] : 1955 Acct:[id number] Age/Sex: 70 / F ADM Date: 06/19/25 Loc: HO.MAMMO Attending Dr: Loco Michel MD Ordering Physician: Loco Michel MD Results: 0Incomplet e: Needs Additional Imaging Evaluation Date of Service: 06/19/25 Follow Up: Additional Imagi ng Procedure(s): MM tomosynthesis screening BI Accession Number(s): [id number] cc: Loco Michel MD ADDENDUM ADDENDUM #1 [...] 06/27/25 1144 DD/ 1345 TD/TT: 06/19/25 1400 Vice President Network Development: Procedure Note Donotuseinterpreter, Image - 07/05/2025 [facility] [address] [place] [address] Mammography Report Signed with Dorie Patient: Sarah MoratayaMR#: [id number] : 4Acct:[id number] Age/Sex: 70 / FADM Date: 06/19/25 Loc: RUDDYO Attending Dr: Loco Michel MD Ordering Physician: Loco Michelesults: 0Incomplet e: Needs Additional Imaging Evaluation Date of Service: 06/19/25Follow Up: Additional Imagi ng Procedure(s): MM tomosynthesis screening BI Accession Number(s): [id number] cc: Loco Michel MD ADDENDUM ADDENDUM #1 [...] 06/27/25 1144 DD/ 1345 TD/TT: 06/19/25 1400 Vice President Network Development: Loco MCDONALD BI PROCEDURES Edited Result - Final from Last 3 Months or Most Recently Relevant to Health Maintenance Insurance OPEN ACCESS Care Teams Financial Services Sales Representative Relationship Specialty Start Date End Date Name, MD Loco [address] [place] [phone] PCP - General Family Medicine 05/31/18
--- OUTSIDE RECORDS SUMMARY | 2025-11-02 21:55 | XMS_ITS | Encounter Summary ---
Author Organization [employer] Address [address] [facility] [address] [address] Care Team Providers Care Non Acoustic Operator Name Role Phone NameLoco MD Primary Care Provider [phone] Reason for Visit * Reason Onset Date Comments Appointment Request 12/14/2024 Encounter Details Date Type Department Care Team ([facility] st Contact Info) Description 12/14/2024 Telephone [facility] [address] [place], [place] [phone] Name, MD Loco [address] [place] [address] Appointment Request Social History Tobacco Use Types Packs/Day Years Used Date Smoking Tobacco: Every Day Cigarettes Smokeless Tobacco: Never Alcohol Use Standard Drinks/Week Comments Yes 0 (1 standard drink = 0.6 oz pur e alcohol) occassionally Depression Answer Date Recorded Patient Health Questionnaire-9 Score 0 12/16/2022 Housing Stability Answer Date Recorded What is your housing situation today? I have linden dumont 09/14/[address] you [...] schedule but there's no availability. Contact pt [phone] documented in this encounter Plan of Treatment Not on file documented as of this encounter Visit Diagnoses Not on filedocumented in this encounter Additional Health Concerns Assessment Noted Time PHQ-9 Depression Total Score: 0 12/16/19 9:25 AM EST documented as of this encounter Care Teams Non Acoustic Operator Relationship Specialty Start Date End Date Name, MD Loco [address] [place] [address] PCP - General Family Medicine 05/31/18 documented as of this encounter
== END 2025-11-02 15:47 | disposition home or self-care (01) ==
LOC: HO.US 15:46
PROVIDERS: PCP Internal Medicine Geriatric Medicine; Visit Provider Internal Medicine Geriatric Medicine
DX: E04.1 Nontoxic single thyroid nodule (principal)
CPT/HCPCS: 76536

== ENCOUNTER → 2025-11-02 15:49 | Outpatient (BNV) | payer OTHER, SELFPAY | PROVIDERS: PCP Internal Medicine Geriatric Medicine; Visit Provider Radiology Diagnostic Radiology | DX: Z86.39 Personal history of other endocrine, nutritional and metabolic disease (principal) | CPT/HCPCS: 76536 ==